=== PATIENT | male | born 1960 | race Caucasian/White ===

== ENCOUNTER 2016-11-09 05:52 | Day surgery (SDC) | payer BC ==
[~2016-11-09] VITALS: Ht 185.4 cm; Wt 128.4 kg
[~2016-11-09 05:52] MED LIST: CRESTOR10 MG PO; INSU100I13 SQ; LIRA0.6P2 SQ; METF10002 PO; NITR0.4T SL; ONDANSETRON PF 4 MG/2 ML VIAL. IV PRN; OXYB5TAB7 PO; PIOG30TA20 PO; RAMI10CA PO; SERT50TA PO; TAMS0.4C2 PO
[2016-11-09] MEDS ORDERED: ONDANSETRON PF 4 MG/2 ML VIAL. IV PRN (07:00)
[2016-11-09] MEDS ORDERED: FENTANYL PF 100 MCG/2 ML VIAL. IV PRN ×2 (07:00)
[2016-11-09] MEDS ORDERED: IV RINGERS,LACTATED 1000ML 1,000 ML IV SCH (07:00)
[2016-11-09] MEDS ORDERED: LIDOCAINE 1% 1 ML SYRINGE. ID PRN (07:00)
[2016-11-09] MEDS ORDERED: PROCHLORPERAZINE 10 MG/2 ML VIAL. IV PRN (07:00)
[2016-11-09] MEDS ORDERED: ROCURONIUM 50 MG/5 ML VIAL. ONE (07:12)
[2016-11-09] MEDS ORDERED: FAMOTIDINE 20 MG/2 ML VIAL ONE (07:13)
[2016-11-09] MEDS ORDERED: DEXAMETHASONE SOD PHOS 20 MG/5 ML VIAL. ONE (07:13)
[2016-11-09] MEDS ORDERED: PROPOFOL 20 ML IV ONE ×2 (07:13→10:08)
[2016-11-09] MEDS ORDERED: ONDANSETRON PF 4 MG/2 ML VIAL. ONE (07:13)
[2016-11-09] MEDS ORDERED: EPINEPHRINE 30 MG/30 ML VIAL. ONE (07:15)
[2016-11-09] MEDS ORDERED: CEFAZOLIN 2GM PREMIX 50 ML IV ONE (08:00)
[2016-11-09] MEDS ORDERED: GLYCOPYRROLATE 1 MG/5 ML VIAL. ONE (09:23)
[2016-11-09] MEDS ORDERED: NEOSTIGMINE METHYLSULFATE 5 MG/5 ML SYRINGE. ONE (09:23)
[2016-11-09] MEDS ORDERED: KETOROLAC 60 MG/2 ML SYRINGE FOR OR. ONE (09:30)
--- NOTE | 2016-11-09 10:09 | HP ---
ADMIT DATE: 11/09/2016 PRINCIPAL DIAGNOSES: Right shoulder pain and rotator cuff tear. HISTORY OF PRESENT ILLNESS: The patient has had bilateral shoulder pain for about the past 2 years. The left was hurting longer than the right. He was diagnosed with rotator cuff tears in both shoulders and the left was fixed by another surgeon. He had good recovery from it and recently, he has been taking ibuprofen 800 mg 3 times a day, but he has had to cut down on that at the instruction of his family doctor and he states that the right shoulder hurts, lifting away from his body, overhead, lying out it in bed. PAST MEDICAL HISTORY: Significant for type 2 diabetes. PAST SURGICAL HISTORY: Left rotator cuff repair in 2015, and significant for a partial colectomy x 2. FAMILY HISTORY: Mother with diabetes and hypertension. SOCIAL HISTORY: , accompanied by his today. Denies smoking and drug use. Occasional social alcohol use. MEDICATIONS: List is reviewed. ALLERGIES: INCLUDE OXYCODONE, HYDROCODONE, AND MORPHINE. REVIEW OF SYSTEMS: He is very sensitive to constipation with pain medications and previously had ileus that I think resulted in one of the partial colectomies and he is very cautious in terms of taking pain medication. He denies any recent chest pain, shortness of breath, focal weakness, numbness, tingling in the extremities, fever, chills or other constitutional symptoms. PHYSICAL EXAMINATION: VITAL SIGNS: Per admission sheet. HEENT: Atraumatic, normocephalic. HEART: Regular rate and rhythm. LUNGS: Clear to auscultation bilaterally. ABDOMEN: Benign, obese. EXTREMITIES: Examination of the right shoulder reveals weakness primarily in abduction more so than external rotation of the right rotator cuff. He has well-healed incisions from previous left shoulder arthroscopy and from his colectomy and he has overall intact motor function, distal pulses, sensation, reflexes, and skin in both upper extremities throughout. PREVIOUS IMAGING STUDIES: Showed a rotator cuff tear. TREATMENT PLAN: I had gone over with him the typical repair, arthroscopic if possible, open if needed, possibility is that the tear cannot be repaired, but likelihood of repair and addressing any other anatomic issues such as his bone spur or other abnormal issues would all be dealt with to the extent possible. He is certainly familiar with a long recovery process, the restrictions, and the rationale for protection and also the medical or anesthetic complications or possible infection, nerve or blood vessel damage, nonhealing, continued pain among others. Again, all his questions were answered, consent was obtained, and he agrees to proceed with operative evaluation and treatment, which will occur today, probably on an outpatient basis, but certainly overnight is a possibility depending on his recovery. STAR HUSAIN MD DR: TONY/maria isabel JOB#: [id number] / [id number]
[2016-11-09] MEDS ORDERED: DESFLURANE > 120 MINUTES IH ONE (10:11)
[2016-11-09 11:36] VITALS: BP 119/65
--- NOTE | 2016-11-09 13:40 | DISCH ---
DISCHARGE INSTRUCTIONS Condition on Discharge Condition on Discharge: Stable Activity After Discharge Activity Instructions for Disc: Other, see below Other activity instructions: passive motion and pendulum exercises only, may do fine motor arms at side Diet after Discharge Diet after Discharge: Diabetic No Calorie Level Wound Incision Care Wound/Incision Care: Ice to area for comfort, Change dressing Other wound/incision instructi: remove dressings 2 days may then shower Community/Resources/Services Services at Discharge: PT EVALUATE & TREAT Contacting the DR. after DC Call your doctor for: Concerns you may have Follow-Up Follow up with: Marci 10 days STAR HUSAIN MD Nov 09, 2016 13:40
[2016-11-09] MEDS ORDERED: HYDR2TAB13 PO (13:42)
--- NOTE | 2016-11-09 14:17 | PDOC ---
BRIEF OPERATIVE NOTE Date: Nov 09, 2016 Pre-Op Diagnosis rotator cuff tear, impingement Post-Op Diagnosis same plus ac djd Procedure Performed right shoulder arthroscopic rotator cuff repair, decompression, distal clavicle resection Surgeon Marci Anesthesia Type: General, Regional Blood Loss 25cc Findings above Complications none STAR HUSAIN MD Nov 09, 2016 14:17
--- NOTE | 2016-11-10 10:49 | OP ---
DATE OF SURGERY: 11/09/2016 ORTHOPEDIC OPERATIVE NOTE: PREOPERATIVE DIAGNOSIS: Rotator cuff tear, right shoulder as well as impingement. POSTOPERATIVE DIAGNOSIS: Rotator cuff tear, right shoulder as well as impingement with acromioclavicular joint degenerative joint disease and superior labral fraying with intact biceps anchor. PROCEDURE: Right shoulder arthroscopy, arthroscopic rotator cuff repair, decompression, distal clavicle excision, and debridement of superior labral fraying. SURGEON: Nino Covarrubias M.D. ANESTHESIA: General endotracheal plus scalene block. ESTIMATED BLOOD LOSS: 50 mL. COMPLICATIONS: None. OPERATIVE INDICATIONS: The patient has pain and weakness in a fairly longstanding manner at his right shoulder. He had previous rotator cuff repair on the left with excellent results has continued ongoing symptoms on the right with pain, weakness and MRI findings of a full thickness rotator cuff tear. I had gone over with him the risks, benefits, postoperative course, surgical evaluation and treatment, indicating long recovery process, even under the best of circumstances, infection, nerve or blood vessel damage, possibility of nonhealing or other medical or other anesthetic complications. All his questions were answered. Consent was obtained and he agrees to proceed with operative evaluation and treatment. OPERATIVE TECHNIQUE: The patient was identified, procedure verified, patient placed in the supine position on the operating table. After adequate amounts of general endotracheal anesthesia were administered with preexisting scalene block, he was placed in the decubitus position, right side up. All bony prominences were well padded and the right shoulder was examined under anesthesia and found to have full range of motion, no instability. After timeout was performed, the patient and procedure identified and verified, he was placed in the arthroscopic arm moss with total of 15 pounds of traction, the standard posterior portal was established and anterior portal established using spinal needle localization and the shoulder joint was systematically examined. He did have some superior labral fraying present that was lightly debrided with arthroscopic shaver. Biceps anchor was probed and found to be intact. No compromise the biceps tendon as it was pulled into its joint. He did have a full thickness tear of the distal supraspinatus insertion as expected, normal bare area of the humerus and capsule ligamentous structures and preservation of the glenohumeral joint cartilage, subacromial space was then entered, bursa was cleared to allow visualization and the rotator cuff tear was confirmed debrided and the footprint repaired after mobilization judgment that adequate repair can be carried out. Large anterior acromial spur was removed with an arthroscopic bur using cutting block technique converting the area to a type 1 acromion. Distal clavicle was noted to be narrowed and arthritic and was resected 1 cm preserving the overlying joint capsule for stability. Bony fragments were then removed with the arthroscopic shaver and arthroscopic double rotator cuff repair was carried out with a total of two suture anchors placed medially. [employer]al[employer] double loaded, which were placed in the mattress fashion with the arthroscopic suture passer, fixation was carried out with sliding locking knots backed up by alternating post-half hitches, lateral row repair with MULTIFIX a total of two anchors placed with sutures in a cross fashion. Excellent watertight repair was examined under all degrees of internal and external rotation. Portals were closed with nylon suture. Sterile dressings were applied. He was placed in an immobilizer, extubated and transferred to postop holding in stable condition having tolerated the procedure well. NINO COVARRUBIAS MD DR: TONY/maria isabel JOB#: [id number] / [id number] [facility] Care Physician, Primary
== END 2016-11-09 14:14 | disposition home or self-care (01) ==
LOC: SURG 05:52
PROVIDERS: ATTEND Orthopaedic Surgery
DX: M75.101 Unspecified rotator cuff tear or rupture of right shoulder, not specified as traumatic (principal); M25.811 Other specified joint disorders, right shoulder; M19.011 Primary osteoarthritis, right shoulder; Z87.442 Personal history of urinary calculi; M19.90 Unspecified osteoarthritis, unspecified site; E11.9 Type 2 diabetes mellitus without complications; Z72.89 Other problems related to lifestyle
CPT/HCPCS: 82947; C1713; J0171; J0690; J1100; J1885; J2405; J2704; J2710; J3490; J7120; S0028; J2001

== ENCOUNTER → 2018-07-28 | Outpatient (CLI) | payer BC, OTHER ==
[~2018-07-28] MED LIST changes: +HYDR2TAB31 PO; -METF10002 PO; +METF10007 PO; -ONDANSETRON PF 4 MG/2 ML VIAL. IV PRN; -PIOG30TA20 PO; +PIOG30TA41 PO; -RAMI10CA PO; +RAMI10CA53 PO
--- NOTE | 2018-07-28 17:19 | PCVCIMAG ---
APPROVED REPORT Study performed: 07/28/2018 14:39:15 Exam: Stress Echocardiogram Indication: CAD s/p PCI LAD, DM, HTN Patient Location: Echo lab Stress Nurse: Suni Donato RN Status: routine Ht: 6 ft 1 in HR: 54 bpm BP: 138/72 mmHg Rhythm: Bradycardia Procedure The patient underwent an Exercise Stress Test using the Dilan Protocol. Blood pressure, heart rate, and EKG were monitored. An Echocardiogram was performed by licensed chemical spray technician in four stages in quad fashion. At peak stress, four selected images were obtained and placed side by side with resting images for comparison. Stress Test Details Stress Test: Exercise stress testing was performed using a Dilan protocol. HR Resting HR: 54 bpmMax Heart Rate (APMHR): 162 bpm Max HR Achieved: 160 bpmTarget HR (85% APMHR): 137 bpm % of APMHR: 98 Recovery HR: 67 bpm HR response to stress: Normal HR response to stress BP Resting BP: 138/72 mmHg Max BP: 178/60 mmHg Recovery BP: 128/60 mmHg BP response to stress: Normal blood pressure response to stress. ECG Resting ECG: Sinus Rhythm Stress ECG: Sinus Rhythm ST Change: Normal Arrhythmia: short run of PSVT, frequent PACs Recovery ECG: Sinus Rhythm Recovery ST Change: Normal Recovery Arrhythmia: None Clinical Reason for Termination: Maximal effort, Dyspnea Stress Symptoms: Dyspnea Exercise duration: 8 min 1 sec Highest Stage Achieved: Stage 3: 3.4 mph at 14% grade. Exercise capacity: 10.1 METs Overall Exercise Capacity for Age: Average Scale: Active Angina Score: None Pre-Stress Echo The resting Echocardiogram showed normal left ventricular contractility with an estimated Ejection Fraction of about 50-55%. Normal wall motion in all segments on baseline images. Post-Stress Echo The stress Echocardiogram showed normal left ventricular contractility with an estimated Ejection Fraction of about 60-65%. Normal augmentation of wall motion in all segments on post stress images. Clinical No clinical or ECG evidence for ischemia. Conclusion Clinical Response: Non-ischemic Exercise Capacity: Average Stress ECG Response: Non-ischemic Stress Echo Images: Non-ischemic The left ventricle is normal in size and wall thickness in both the rest and stress images. Other Information Study Quality: Adequate <Conclusion> The left ventricle is normal in size and wall thickness in both the rest and stress images.
== END | disposition home or self-care (01) ==
LOC: PCVCIMAG 14:45
PROVIDERS: ATTEND Internal Medicine Cardiovascular Disease
DX: I10 Essential (primary) hypertension (principal); E11.9 Type 2 diabetes mellitus without complications; R53.83 Other fatigue; R00.1 Bradycardia, unspecified; G47.30 Sleep apnea, unspecified; Z79.4 Long term (current) use of insulin
CPT/HCPCS: 93325; 93351